=== PATIENT | male | born 1970 | race Caucasian/White ===

== ENCOUNTER → 2022-09-10 | Outpatient (CLI) | payer OTHER, SELFPAY ==
--- NOTE | 2022-09-09 | LES_PTH ---
PATIENT: RIO MONSIVAIS LOC: [facility] U#:[id number] AGE/SX: 52/M ROOM: RE09/10/[address]: Dr. Giorgio Rowan MD : [id number] BED: DIS: 09/10/2022 SPEC #: [id number] RECD: 09/10/22 10:20 STATUS: MALATHI KASSIE #: [id number] [place]: 09/09/22 00:[address]: Giorgio Rowan DEPT: SURGICAL PATHOLOGY RECD BY: Yoana Perez ENTERED: 09/10/22 12:51 SP TYPE: Lesion OTHR DR: Dr. Alejandro Lua, DO Tissues: Skin of eyelid, NOS Procedures: Surgery Specimen Level IV HEADER OPERATION: Right lower lid lesion removal PRE-OP DIAGNOSIS: Increased size lesion with ulceration, ? BCCA TISSUE SUBMITTED: Right lower lid MICROSCOPIC DIAGNOSIS Lesion of right lower eyelid, biopsy: Basal cell carcinoma. See comment. AM:chalo 09/11/2022 COMMENT The lesion extends to the deep sections of the biopsy. Clinical correlation is suggested. MICROSCOPIC DESCRIPTION Slides are reviewed. GROSS DESCRIPTION Received in fixative is one container labeled with the patient's name and designated right lower lid. The specimen consists of an irregular fragment of light klein soft tissue measuring 0.5 x 0.1 x <0.1 cm. The specimen is totally submitted in one cassette. / AM:chalo 09/10/2022 TC:0 CPT: 06592
== END | disposition home or self-care (01) ==
LOC: LABSPEC 10:32
PROVIDERS: PCP Family Medicine Hospice and Palliative Medicine; Referring Provider Ophthalmology; Visit Provider Ophthalmology
DX: C44.1122 Basal cell carcinoma of skin of right lower eyelid, including canthus (principal)
CPT/HCPCS: 88305